=== PATIENT | male | born 1990 | race Caucasian/White ===

== ENCOUNTER → 2016-09-30 | Outpatient (CLI) | payer BC | END | disposition home or self-care (01) | LOC: LAB.O 11:03 | PROVIDERS: ATTEND Nurse Practitioner Family | DX: I10 Essential (primary) hypertension (principal); I20.9 Angina pectoris, unspecified; Z68.44 Body mass index [BMI] 60.0-69.9, adult; F41.8 Other specified anxiety disorders; Z13.220 Encounter for screening for lipoid disorders; Z13.1 Encounter for screening for diabetes mellitus ==

== ENCOUNTER → 2016-10-30 | Outpatient (CLI) | payer BC | LOC: YCFC.O 11:34 | PROVIDERS: ATTEND Nurse Practitioner Family | DX: E03.9 Hypothyroidism, unspecified (principal) ==

== ENCOUNTER 2016-11-30 20:12 | Emergency (ER) | payer BC ==
[2016-11-30] MEDS ORDERED: ADENOSINE INJ 6 MG/2 ML SYG IV ONE ×4 (20:30→21:07)
[2016-11-30] MEDS ORDERED: SODIUM CHLORIDE 0.9% 1000ML 1,000 ML ONE (20:37)
[2016-11-30] MEDS ORDERED: diltiaZEM DRIP 125 MG/25 ML VIAL IVPB ONE (20:42)
[2016-11-30] MEDS ORDERED: SODIUM CHLORIDE 0.9% 100ML 100 ML IVPB ONE (20:43)
[2016-11-30] MEDS ORDERED: diltiaZEM DRIP 125 MG in SODIUM CHLORIDE 0.9% 100ML 100 ML IVPB SCH (21:30)
--- NOTE | 2016-11-30 21:30 | ED.PDOC ---
History of Present Illness - General Chief Complaint: Cardiovascular Problem Stated Complaint: palpitations, chest pressure Time Seen by Provider: 11/30/16 21:06 Source: patient, RN notes reviewed, Vital Signs reviewed Exam Limitations: no limitations - History of Present Illness Initial Comments: Patient presents to ER via private vehicle with c/o of chest pain, palpitations and lightheadedness. Symptoms started @ ~ 17:00. Patient reports his heart feels like it is going to pound out of his chest. He has had one similar episode in the past. After testing was told his heart was fine. Timing/Duration: 1-3 hours Severity: moderate Location: substernal Activities at Onset: activity - @ work, emotional stress Prior Chest Pain/Cardiac Workup: echocardiography, other Improving Factors: nothing Worsening Factors: nothing Nitro Today/Relief: no nitro taken today Aspirin Treatment Today: no aspirin today Associated Symptoms: chest pain, malaise Allergies/Adverse Reactions: Allergies Penicillins Allergy (Verified 11/30/16 20:57) Review of Systems - Review of Systems Constitutional: States: no symptoms reported Respiratory: States: no symptoms reported. Denies: cough, short of breath Cardiology: States: see HPI, chest pain, palpitations. Denies: syncope Gastrointestinal/Abdominal: States: no symptoms reported Musculoskeletal: States: no symptoms reported Skin: States: no symptoms reported Neurological: States: see HPI, other - lightheaded. Denies: headache All other Systems: No Change from Baseline Past Medical History (General) - Patient Medical History Hx Cardiac Disorders: Yes - has had fast heart rate before Hx Hypertension: Yes Surgical History: no surgical history - Vaccination History Hx Tetanus, Diphtheria Vaccination: No Hx Influenza Vaccination: No - Social History Hx Tobacco Use: No Hx Alcohol Use: Yes - occ Family Medical History - Family History Mother Family History: Unknown Physical Exam - Physical Exam General Appearance: Alert, Anxious, Obvious distress, Ill Appearing, Obese, Well Groomed, Well Hydrated, Well Nourished Neck: supple, normal inspection Respiratory: lungs clear, normal breath sounds, no respiratory distress, no accessory muscle use Cardiovascular/Chest: no gallop, no murmur, tachycardia Gastrointestinal/Abdominal: non tender, soft, other - Obese Extremity: normal inspection Neurologic: no motor/sensory deficits, alert, normal mood/affect, oriented x 3 Skin Exam: normal color, warm/dry Comments: Vital Signs 11/30/16 21:00 Temperature 98 F Pulse Rate 156 H Pulse Rate [ 128 H left] Respiratory 24 Rate Blood Pressure 159/64 [left] O2 Sat by Pulse 97 Oximetry Progress - Progress Progress: 11/30/16 21:32 Came in in SVT with rate of 157. No response to Adenosine 6mg or 12mg. Gave Cardizem 20mg IVP and HR decreased to 90's. Started on Cardizem drip @ 5mg - Results/Orders Results/Orders: Laboratory Tests 11/30/16 20:30 WBC 9.3 RBC 5.50 Hgb 14.8 Hct 43.9 MCV 79.8 L MCH 26.8 L MCHC 33.6 RDW 14.0 Plt Count 186 MPV 9.4 Absolute Neuts (auto) 5.30 Absolute Lymphs (auto) 3.00 Absolute Monos (auto) 0.70 Absolute Eos (auto) 0.20 Absolute Basos (auto) 0.10 Neutrophils % 57.6 Lymphocytes % 32.0 Monocytes % 7.2 Eosinophils % 2.6 Basophils % 0.6 PT 12.2 INR 1.080 PTT (SP) 34.0 Sodium 142 Potassium 3.5 L Chloride 104 Carbon Dioxide 27 Anion Gap 14.5 BUN 11 Creatinine 0.84 BUN/Creatinine Ratio 13.1 Random Glucose 131 H Serum Osmolality 284.3 Calcium 9.0 Magnesium 1.7 L Creatine Kinase 123 CK-MB (CK-2) 2.1 CK-MB (CK-2) % Not Reportable Troponin I < 0.02 - EKG/XRAY/CT EKG: Sinus, Tachy, RBBB Comments: SVT - Rate 157 XRAY: chest - No acute findings per Radiologist - Additional EKG/XRAY/Consults EKG #2: Sinus, nonspecific ST T wave Chg Comments: with frequent PVC's Departure - Departure Clinical Impression: Supraventricular tachycardia Time of Disposition: 22:02 Disposition: Transfer to Hospital Condition: Poor Departure Forms: ED Discharge - Pt. Copy, Patient Portal Self Enrollment Referrals: Umu Samson NP [Primary Care Provider] - 1-2 Weeks Transfer to Outside Facility - Transfer Information Accepting Provider:: Dr. Hollingsworth Accepting Facility: [facility] Reason for Transfer: specialized care not available
--- NOTE | 2016-11-30 21:37 | RAD ---
PROCEDURE: XR CHEST 1 VIEW HISTORY: Chest pain/SVT COMPARISON: None TECHNIQUE: Single projection of the chest was done. FINDINGS: The lung gill are well inflated . There are no discrete airspace infiltrates, pneumothoraces or pleural effusions. The pulmonary vascularity is normal. The cardiomediastinal silhouette is unremarkable for patient's age and sex. IMPRESSION: There is no acute pleural-parenchymal process seen in the imaged lung gill. Location of Interpretation: Teleradiology Electronically signed by: Zach Valerio MD 11/30/2016 9:36 PM CDT Workstation: [id number]
[2016-11-30 22:35] VITALS: BP 151/97; O2SAT 96
[2016-11-30 23:16] VITALS: TEMP 98
== END 2016-11-30 23:16 | disposition short-term general hospital (02) ==
LOC: ER 20:12
DX: I47.1 Supraventricular tachycardia (principal); I45.10 Unspecified right bundle-branch block; Z82.49 Family history of ischemic heart disease and other diseases of the circulatory system; Z88.0 Allergy status to penicillin
CPT/HCPCS: 36415; 71010; 80048; 82550; 82553; 84484; 85025; 85610; 85730; 93005; J0153; J7030; J7050